=== PATIENT | male | born 1995 | race Caucasian/White ===

== ENCOUNTER 2019-10-15 04:26 | Day surgery (SDC) | payer OTHER ==
[2019-10-13 17:36] VITALS: BMI 31.6
[2019-10-15] MEDS ORDERED: PROPOFOL 20 ML ONE (07:23)
[2019-10-15] MEDS ORDERED: MIDAZOLAM HCL 2 MG/2 ML SINGLE DOSE VIAL ONE (07:24)
[2019-10-15] MEDS ORDERED: LIDOCAINE 1%/EPI 1:100000 (20 ML MULTI DOSE VIAL) ONE (07:56)
[2019-10-15] MEDS ORDERED: DESFLURANE GAS 240 ML BOTTLE IH ONE (08:19)
--- NOTE | 2019-10-15 09:42 | OP ---
Operative Note - Note: Operative Date: 10/15/19 Pre-Operative Diagnosis: Right knee osteochondritis Operation: Right knee arthroscopy, partial meniscectomy Post-Operative Diagnosis: Same as Pre-op Surgeon: Benjamín Richardson I Senior Technologist: Seth Miller Anesthesiologist/PANEL MACHINE TENDER: Dionte Griffin Anesthesia: General Estimated Blood Loss (mls): 5 Fluid Volume Replaced (mls): 1,000 Operative Report Dictated: Yes
--- NOTE | 2019-10-15 09:42 | SURG ---
Surgery Clinical Laboratory Director Note Clinical Laboratory Director: Seth Miller PA-C Date of Service: 10/15/19 Diagnosis: Right knee osteochondritis Procedure: Right knee arthroscopy, partial meniscectomy I was present for the entirety of the operative procedure. For further detail, please refer to operative report. Visit type - Case Type Case Type: Scheduled - Emergency Emergency Visit: No - New patient This patient is new to me today: Yes Date on this admission: 10/15/19 - Critical Care Critical Care patient: No
[2019-10-15 10:59] VITALS: TEMP 97.8
[2019-10-15] MEDS ORDERED: PROMETHAZINE HCL 25 MG/1 ML VIAL IVPUSH PRN (11:14)
[2019-10-15 13:07] VITALS: BP 121/72; PULSE 84
--- NOTE | 2019-10-20 13:41 | OP ---
DATE OF OPERATION: 10/15/2019 PREOPERATIVE DIAGNOSIS: Torn lateral meniscus. POSTOPERATIVE DIAGNOSIS: Torn lateral meniscus, chondromalacia of the lateral tibial plateau. SURGEON: Benjamín Richardson MD ANESTHESIA: General. PROCEDURE: Arthroscopy, lateral meniscectomy and chondroplasty. DESCRIPTION OF PROCEDURE: After the induction of general anesthesia, the entire leg and knee and thigh were now prepped and draped in a free manner. A superolateral portal was made through which a cannula was introduced. Two other portals were made from the medial and the lateral aspect of the patella tendon. The scope was introduced from the lateral portal and the inspection started in the suprapatellar pouch. No major pathology was found in that area. The scope was taken to the medial compartment where the surface of the femoral condyle and the tibial plateau showed to be reasonably healthy. The medial meniscus was inspected and was found to be without any evidence of tearing. In the intercondylar notch the ACL was found to be intact. Finally, the lateral compartment was inspected. A very complex tear of the junction of the 2/3 of the lateral meniscus and the posterior third was found extending radially to the capsule and a large piece interposed between the femoral condyle and the tibial plateau. Further inspection also showed evidence of damage to the surface of the tibial plateau, most likely because of the longstanding pathology in that knee. Using the third portal and mostly the Mitek bipolar cautery, a subtotal meniscectomy of the lateral meniscus was done. The pathology in the tibial plateau was addressed also with a limited chondroplasty. The joint now was lavaged through the scope and evacuated from all debris of articular shaving. Hemostasis was obtained. All instruments were removed and the portals were closed using interrupted 3-0 nylon. A dressing was applied. The patient tolerated the procedure and left the operating room in excellent condition. Moira [id number]
== END 2019-10-15 13:07 | disposition home or self-care (01) ==
LOC: JASU-SURG 04:26
PROVIDERS: ATTEND Orthopaedic Surgery
PROC: 0SBC4ZZ Excision of Right Knee Joint, Percutaneous Endoscopic Approach (ICD-10-PCS; 2019-10-15)
PROC: 0SBC4ZZ Excision of Right Knee Joint, Percutaneous Endoscopic Approach (ICD-10-PCS; principal; 2019-10-15 08:00)
DX: S83.281A Other tear of lateral meniscus, current injury, right knee, initial encounter (principal); M94.261 Chondromalacia, right knee; X58.XXXA Exposure to other specified factors, initial encounter; Y93.9 Activity, unspecified; Y92.9 Unspecified place or not applicable
CPT/HCPCS: 29881; G0289; 94760; 97116-GP